=== PATIENT | male | born 1985 | race Caucasian/White ===

== ENCOUNTER 2020-02-12 16:35 | Emergency (ER) | payer SELFPAY ==
[~2020-02-12] VITALS: Ht 167.6 cm; Wt 76.2 kg
[2020-02-12 16:45] VITALS: Ht 167.6 cm; Wt 76.2 kg
[2020-02-12 18:12] LABS: UA SPECIFIC GRAVITY 1.015 (1.005-1.035); microscopic required? YES; urine erythrocyte TRACE (NEGATIVE)
[2020-02-12 19:00] VITALS: BP 122/72
== END 2020-02-12 19:15 | disposition home or self-care (01) ==
LOC: ED 16:35
PROVIDERS: Emergency Medicine
DX: N43.3 Hydrocele, unspecified (principal)
CPT/HCPCS: 87491; 87591; J0456; J0696; J1885; Q0092; Q0162